=== PATIENT | female | born 1975 | race Caucasian/White ===

== ENCOUNTER → 2022-02-24 10:28 | Outpatient (BNVA) | payer MEDICAID, SELFPAY | PROVIDERS: PCP Student in an Organized Health Care Education/Training Program; Referring Provider Student in an Organized Health Care Education/Training Program; Visit Provider Specialist | DX: G43.711 Chronic migraine without aura, intractable, with status migrainosus (principal) | CPT/HCPCS: 99204 ==

== ENCOUNTER → 2022-06-14 12:26 | Day surgery (SDC) | payer BC, SELFPAY ==
[2022-06-14] MEDS: ondansetron 2 mg/ML SDV 2 mL 4 MG IVP (13:27)
[2022-06-14] MEDS: diphenhydrAMINE 50 mg/mL SDV 1mL 25 MG IVP (13:29)
[2022-06-14] MEDS: dihydroergotamine 1 mg/mL Inj IVP ×2 (13:35→13:58)
[2022-06-14 13:39] VITALS: BP 153/89; PULSE 50; RESP 18; TEMP 35.9; O2SAT 95
--- NOTE | 2022-06-14 14:15 | PC.NURSE ---
Pt states DHE is making headache much worse. Started with headache pain of 6. Headache pain after 2 doses of DHE 15 minutes apart now at 9. Pt states she can smell burnt plastic. States headache pain is like railroad spike being driven through back of head . Pt requesting dose of Dilaudid IV. Pt states that Dilaudid is the only medicine that helps when her headaches get this bad. States she has had Dilaudid in the ER in the past. Dr. Sierra notified. Telephone order given for one dose of Dilaudid 1 mg IV and to stop DHE protocol. Pt to return to ER if headache pain worsens or any other problems.
[2022-06-14 14:22] VITALS: RESP 18; O2SAT 95
[2022-06-14] MEDS: HYDROmorphone 1 mg/mL INJ 1 mL IVP (14:22)
[2022-06-14 14:36] VITALS: PULSE 55; RESP 18; O2SAT 99
--- NOTE | 2022-06-14 14:40 | PC.NURSE ---
Pt states headache pain is much better following dose of Dilaudid. Pt no longer crying or rocking in the position. Pt relaxed and talking about dream from night before. Rates headache pain at 5-6. VSS. Sao2 99% on RA.
--- NOTE | 2022-06-14 14:55 | PC.NURSE ---
Pt states headache pain is back at baseline of 5-6. States pain is tolerable and her norm . IV dc'd. Pt instructed to return to ER for increasing pain or complications.
== END ==
PROVIDERS: PCP Student in an Organized Health Care Education/Training Program; Visit Provider Specialist
DX: G43.709 Chronic migraine without aura, not intractable, without status migrainosus (principal)
CPT/HCPCS: 76937; 96374; 96375; J1110; J1170; J1200; J2405